=== PATIENT | male | born 1950 | race Caucasian/White ===

== ENCOUNTER 2023-04-17 15:43 | Emergency (ER) | payer OTHER, SELFPAY ==
[2023-04-17] VITALS (46 sets, daily range): BP systolic 128–156; BP diastolic 65–88; PULSE 87–108; RESP 16–32; TEMP 36.4; O2SAT 93–100
--- NOTE | ~2023-04-17 | CT_ITS ---
EXAMINATION: CT abdomen pelvis w con DATE: 04/17/2023 18:08 INDICATION: Gross hematuria, generalized abdominal pain TECHNIQUE: Computed tomography (CT) of the abdomen and pelvis was performed with 100 mL Omnipaque-350 intravenous contrast. Automated exposure control and iterative reconstruction technique were employe d. The dose-length product was 1171.23 mGy-cm. COMPARISON: None. FINDINGS: Lower thorax: Aortic mitral and coronary artery calcifications. Minimal dependent atelectasis/scar. Liver: Normal. Biliary/Gallbladder: Gallbladder is normal. No bile duct dilation. Pancreas: Mild fatty infiltration. Spleen: Normal. Adrenals:1.6 cm indeterminate density (37HU) right adrenal mass. Kidneys: No suspicious mass, obstructing stone, or hydronephrosis. GI tract: Mild distal esophageal and gastric wall edema. No small or large bowel dilation. Normal julia endix. Mesentery/Peritoneum: No ascites, mass, or free air. Retroperitoneum: No mass. Atherosclerotic abdominal aortic and/or arterial calcifications. 4.3 cm inf rarenal abdominal aortic aneurysm with intramural thrombus. Pelvis: Marked urinary bladder distention. Prostatomegaly. Barry catheter terminating in the proximal penile urethra, with adjacent subcutaneous or urethral gas and a blush of contrast and may represent ureteral hemorrhage. Soft Tissues: Soft tissues and body wall unremarkable. Bones: No acute osseous finding. IMPRESSION: Mild esophagitis/gastritis. 1.6 cm indeterminate density right adrenal mass, probably benign. Recommend nonemergent outpatient ad renal CT if there is a history of cancer. If no cancer history, consider 12 month follow-up adrenal C T. 4.3 cm infrarenal abdominal aortic aneurysm, recommend follow-up ultrasound aorta in one year. Marked urinary bladder distention. Malpositioned Barry catheter with suggestion of urethral tear and hemorrhage. Consider urology consultation. Hyperdense dependent debris in the urinary bladder may represent proteinaceous or hemorrhagic debris. Reviewed, dictated and finalized at location K. ANALYST IMPRESSION: Mild esophagitis/gastritis. 1.6 cm indeterminate density right adrenal mass, probably benign. Recommend non emergent outpatient adrenal CT if there is a history of cancer. If no cancer hi story, consider 12 month follow-up adrenal CT. 4.3 cm infrarenal abdominal aortic aneurysm, recommend follow-up ultrasound aor ta in one year. Marked urinary bladder distention. Malpositioned Barry catheter with suggestion of urethral tear and hemorrhage. Consider urology consultation. Hyperdense dependent debris in the urinary bladder may represent proteinaceous or hemorrhagic debris.
--- NOTE | ~2023-04-17 | XR_ITS ---
EXAMINATION: XR chest 1V Exam Date/Time: 04/17/2023 18:00 ONCOLOGY PHARMACIST HISTORY: rhonchi, copd Comparison: None. RESULT: Lines, tubes, and devices: None. Lungs and pleura: Lordotic positioning. Senescent changes, otherwise clear. Cardiomediastinal silhouette: Stable. Other: No acute osseous or upper abdominal finding. IMPRESSION: No acute cardiopulmonary process. Reviewed, dictated and finalized at location K. LOGY PHARMACIST
--- NOTE | 2023-04-17 16:19 | ECG_ITS ---
Measurements Intervals [place] Rate: 92 P: -13 [place]: 203 QRS: -3 QRSD: 76 T: 62 QT: 333 QTc: 413 Interpretive Statements SINUS RHYTHM ATRIAL PREMATURE COMPLEXES NONSPECIFIC ST-T WAVE ABNORMALITY- HIGH LATERAL LEADS BASELINE ARTIFACT- I, II, III, AVR, AVL, AVF, V4-V6 BORDERLINE ECG NO PREVIOUS ECG AVAILABLE FOR COMPARISON Electronically Signed On 04-17-2023 19:27:15 LOT ATTENDANT by Dante Shipman D.O.
--- NOTE | 2023-04-17 16:24 | ED.MALEGU ---
HPI - Male Genitourinary General Chief complaint: Urogenital-Male <Gris Fung PA-C - Last Filed: 04/17/23 19:50> Stated complaint: blood clots in elias <Gris Fung PA-C - Last Filed: 04/17/23 19:50> Time Seen by Provider: 04/17/23 15:43 <Gris Fung PA-C - Last Filed: 04/17/23 19:50> History of Present Illness HPI Narrative: 73-year-old male [facility] with a history of multiple CVAs and residual left-sided hemiplegia, dementia is normally A&O x1 at baseline, COPD 2 L nasal cannula baseline reports for evaluation for gross hematuria in his Elias catheter since midnight yesterday. The patient is a poor historian, however does state that he pulled his catheter out yesterday because it felt like I had to pee . States nursing staff replace his Elias catheter in since then it has been draining blood. He is reporting intermittent generalized mild abdominal pain. He has bruising to his abdomen which he states is from injections of blood thinner . However, no anticoagulants seen in patient's med list. patient denies fever, nausea or vomiting, cough or congestion, rash, lightheadedness or syncope. I contacted [facility] for further information who provided the following history. Patient pulled out his catheter around 6:00 p.m. yesterday, nursing staff was able to place a new Elias catheter out at midnight and noticed dark hematuria. EMS was contacted today and the patient was transported. the patient normally wears 2 L of oxygen at baseline and is A&Ox1. He has not been seen by a urologist per [facility]. He not anticoagulated per med list. <Gris Fung PA-C - Last Filed: 04/17/23 19:50> Related Data Allergies/Adverse reactions: Allergies Allergy/AdvReac Type Severity Reaction Status Date / Time No Known Allergies Allergy Verified 04/17/23 17:55 <Gris Fung PA-C - Last Filed: 04/17/23 19:50> Review of Systems Review of Systems: CONSTITUTIONAL: Denies fever, chills, or sweats. EYES: Denies visual changes, redness, or discharge. ENT: Denies rhinorrhea, congestion, sore throat, or otalgia. CARDIOVASCULAR: Denies chest pain, palpitations, or edema. RESPIRATORY: Denies cough or dyspnea. GASTROINTESTINAL: Denies abdominal pain, nausea, vomiting, or diarrhea. GENITOURINARY: see HPI SKIN: Denies rash or itching. MUSCULOSKELETAL: Denies back pain, joint pain, or myalgia. NEUROLOGIC: Denies headache, numbness, or weakness. PSYCHIATRIC: Denies anxiety or depression. <Gris Fung PA-C - Last Filed: 04/17/23 19:50> Exam Narrative: GENERAL: Well-appearing, well-nourished, and in no acute distress. HEAD: Normocephalic, atraumatic. EYES: PERRLA and EOMI. ENT: Nares clear, no rhinorrhea or epistaxis. Mucous membranes moist. NECK: Supple. CHEST: Decreased breath sounds with rhonchi throughout. HEART: Regular rate and rhythm. No murmur heard. Normal peripheral pulses. ABDOMEN: Normoactive bowel sounds. Abdomen distended, nontender. Ecchymosis to the right flank, right lower and left lower quadrants in various stages of healing. Femoral pulses 2+ bilaterally. : No edema or tenderness to scrotum. Mild hypospadias with dried blood to urethral orifice and head of the penis. Elias catheter in place draining dark red blood. EXTREMITIES: Normal range of motion. No edema. SKIN: Warm, dry, no rash. NEURO: No focal deficits. Alert and oriented x2 <Gris Fung PA-C - Last Filed: 04/17/23 19:50> Course Course Emergency Course: GORDO: Spoke with Urology, Dr. Mcwilliams who was able to evacuate the hematoma with a flexible cystoscope. He has never recommend she interventions. He feels that the patient should be able to go home. Does not feel strongly that the patient needs CBI. Re-evaluation: Patient is resting comfortably. He is still draining dark blood in the bag. Spoke with Hospitalist, Dr. Herrera
[2023-04-17 16:47] LABS: Basophils Percent Auto 0.2 % (0.2-1.2); Hematocrit 35.4 % (42.0-52.0); Hemoglobin 11.3 g/dL (14.0-18.0); Immature Granulocyte Absolute 0.08 K/mm3 (0.00-0.031); Immature Granulocyte Percent A 0.8 % (0-0.5); Lymphocytes Absolute Auto 0.79 K/mm3 (0.9-3.2); Lymphocytes Percent Auto 7.6 % (18.3-44.2); Mean Corpuscular HGB Conc 31.9 g/dl (32-36); Mean Corpuscular Hemoglobin 28.5 pg (26-34); Mean Corpuscular Volume 89.2 fl (80-100); Mean Platelet Volume 9.8 fl (7.4-10.4); Monocytes Absolute Auto 0.4 K/mm3 (0.1-0.6); Monocytes Percent Auto 3.6 % (2.6-8.5); Neutrophils Absolute Auto 9.1 K/mm3 (1.3-6.7); Neutrophils Percent Auto 87.8 % (45.5-73.1); Platelet Count Result 189 k/mm3 (150-375); Red Blood Count 3.97 M/mm3 (4.6-6.20); Red Cell Distribution Width 15.9 % (11.5-14.5); White Blood Count 10.3 K/mm3 (4.5-10.0)
[2023-04-17 16:56] LABS: Alanine Aminotransferase 113 U/L (6-50); Albumin Level 3.5 g/dL (3.5-5.1); Alkaline Phosphatase 179 U/L (38-126); Anion Gap 5 mmol/L (8-16); Aspartate Amino Transferase 57 U/L (17-59); Bilirubin,Total 0.4 mg/dL (0.2-1.3); Blood Urea Nitrogen 23 mg/dL (9-20); Calcium 8.5 mg/dL (8.4-10.2); Carbon Dioxide 25 mmol/L (22-30); Chloride 102 mmol/L (98-107); Estimated CRCL calculation 77 ml/min; Estimated Glomerular Filt Rate > 60; Glucose 163 mg/dL (65-110); Lipase 302 U/L (23-300); Potassium 4.7 mmol/L (3.4-5.0); Prothrombin Time 13.9 Seconds (11.1-14.7); Sodium 132 mmol/L (137-145)
[2023-04-17 16:57] LABS: Partial Thromboplastin Time 23.7 SECONDS (22.3-36.8)
[2023-04-17] MEDS: IPRATROPIUM 0.5 MG/ALBUTEROL SULFATE 2.5 MG AMPUL.NEB 3 ML INHALATION (17:20)
[2023-04-17 17:29] LABS: Hematocrit 35.3 % (42.0-52.0); Hemoglobin 11.2 g/dL (14.0-18.0)
[2023-04-17 17:41] LABS: Lactic Acid Reflex 2.3 mmol/L (0.7-2.0)
[2023-04-17] MEDS: WATER FOR IRRIGATION, STERILE 500 ML BOTTLE (17:55)
[2023-04-17] MEDS: Please add drug allergy info to patient profile. 1 EACH XX (17:56)
--- NOTE | 2023-04-17 17:56 | PC.NURSE ---
after removing elias @1700 that pt arrived with pt was continuously bleeding from penis. notified provider and dr. rosario to examine pt. they gave verbal orders to place 3-way elias cath. pt tolerated this well however minimal blood came out and then stopped draining. irrigation attempted with no success. provider was made aware of the situation and they did ultrasound. elias is in place, no CBI infusing at this time, and pt taken down to CT.
[2023-04-17 18:09] LABS: NT Pro B Type Natriuretic Pept 69 pg/mL (19.9-100)
[2023-04-17 18:27] LABS: Appearance Urine Turbid (Clear); Color Urine Red (Yellow)
[2023-04-17 18:32] LABS: Add Urine Microscopic? YES
[2023-04-17 18:33] LABS: Bacteria Urine Trace /hpf; RBC Urine >100 /hpf (0-2); Squamous Epithelial Cell Urine None seen /hpf (Few); WBC Urine 0-5 /hpf (0-3)
[2023-04-17 20:25] LABS: Reflex Lactic Acid Yes or No Add Lactic
[2023-04-17 20:41] LABS: Hematocrit 35.3 % (42.0-52.0); Hemoglobin 11.2 g/dL (14.0-18.0)
[2023-04-17 20:53] LABS: Lactic Acid 1.6 mmol/L (0.7-2.0)
--- NOTE | 2023-04-17 20:55 | WPDURCON ---
Assessment and Plan Assessment and plan (1) Hemorrhage of urethra: Code(s): N36.8 - Other specified disorders of urethra Status: Acute (2) Urethral tear: Code(s): S37.33XA - Laceration of urethra, initial encounter Status: Acute (3) Urinary retention due to benign prostatic hyperplasia: Code(s): N40.1 - Benign prostatic hyperplasia with lower urinary tract symptoms; R33.8 - Other retention of urine Status: Acute Plan Patient was prepped and draped in a sterile fashion at the bedside. Viscous lidocaine jelly was administered. 16Fr cystoscopy was inserted and urethra noted to have a tear in bulbous urethra, BPH, distended bladder with tea colored urine. Zip wire left in bladder and than cystoscope removed. Over that wire, an 18Fr [place] catheter was placed into the bladder. The wire was removed. The elias catheter was than irrigated and 50ml of clot evacuated. Afterwards the bladder was draining tea colored urine freely. Elias connected to gravity drainage. Patient tolerated the procedure well. No complications 1) Would apply a STAT lock to thigh to make it difficult for patient to remove again 2) Can continue with monthly elias changes in 1 month Urology Consult Note HPI Date Seen: 04/17/23 Requesting Physician: ER Primary Care Provider: Roni Rodriguez, Consult Narrative Narrative: Gorge Michel is a 73 year old male transferred from [facility] with chronic indwelling elias who apparently pulled the elias out due mental confusion. Nursing staff attempted to reinsert but was unsuccessful. CT in ER noted elias balloon inflated in bulbous urethra, bladder distension and small amount of clot at base of bladder. Urology consulted for elias re-insertion Meds Home Medications and Allergies Allergies Allergy/AdvReac Type Severity Reaction Status Date / Time No Known Allergies Allergy Verified 04/17/23 17:55 Vital Signs Vital Signs - 24 hr 04/17/23 15:40 04/17/23 15:51 04/17/23 16:00 Temperature 36.4 C Pulse Rate 97 100 101 H Respiratory Rate 16 28 H 21 H Blood Pressure 142/73 H Pulse Oximetry 99 99 Oxygen Delivery Nasal Cannula Oxygen Flow Rate 4 04/17/23 16:01 04/17/23 16:15 04/17/23 16:16 Temperature Pulse Rate 104 H 92 94 Respiratory Rate 28 H 26 H 24 H Blood Pressure 140/71 Pulse Oximetry Oxygen Delivery Oxygen Flow Rate 04/17/23 17:20 04/17/23 17:27 04/17/23 16:17 Temperature Pulse Rate 97 96 95 Respiratory Rate 29 H 28 H 26 H Blood Pressure Pulse Oximetry Oxygen Delivery Oxygen Flow Rate 04/17/23 16:36 04/17/23 16:45 04/17/23 16:52 Temperature Pulse Rate 95 96 99 Respiratory Rate 24 H 24 H 26 H Blood Pressure 145/69 H Pulse Oximetry 97 97 97 Oxygen Delivery Oxygen Flow Rate 04/17/23 17:00 04/17/23 17:01 04/17/23 17:22 Temperature Pulse Rate 91 94 98 Respiratory Rate 26 H 24 H 23 H Blood Pressure 128/77 Pulse Oximetry 98 98 98 Oxygen Delivery Oxygen Flow Rate 04/17/23 17:30 04/17/23 17:31 04/17/23 17:47 Temperature Pulse Rate 91 97 97 Respiratory Rate 32 H 27 H 26 H Blood Pressure 129/75 Pulse Oximetry 98 97 96 Oxygen Delivery Oxygen Flow Rate 04/17/23 18:10 04/17/23 18:11 04/17/23 18:17 Temperature Pulse Rate 92 Respiratory Rate 24 H Blood Pressure 148/72 H Pulse Oximetry 95 95 94 Oxygen Delivery Oxygen Flow Rate 04/17/23 18:30 04/17/23 18:31 04/17/23 18:58 Temperature Pulse Rate 94 96 99 Respiratory Rate 27 H 23 H 16 Blood Pressure 130/69 Pulse Oximetry 95 98 93 Oxygen Delivery Oxygen Flow Rate Results Labs 04/17/23 20:37 04/17/23 16:35 Labs: Short CBC 04/17/23 04/17/23 04/17/23 Range/Units 16:35 17:19 20:37 WBC 10.3 H (4.5-10.0) K/mm3 Hgb 11.3 L 11.2 L 11.2 L (14.0-18.0) g/dL Hct 35.4 L 35.3 L 35.3 L (42.0-52.0) % Plt Count 189 (150
[2023-04-17] MEDS: LIDOCAINE HCL 2% GEL UROJET 10 ML PKG (21:21)
[2023-04-17] MEDS: SODIUM CHLORIDE 0.9% IV 1,000 ML 1000 ML (21:29)
--- NOTE | 2023-04-17 21:30 | PC.NURSE ---
1000 of NS was used for urology who asked me to over ride a bag of fluids for procedure. they were not used as IV fluids
--- NOTE | 2023-04-17 23:42 | PC.NURSE ---
called [email or web address] and gave report and discharge instructions to Torri.
== END 2023-04-18 00:50 ==
PROVIDERS: Emergency Provider Physician Assistant; PCP Internal Medicine
DX: S37.33XA Laceration of urethra, initial encounter (principal); N40.1 Benign prostatic hyperplasia with lower urinary tract symptoms; R33.8 Other retention of urine; E27.8 Other specified disorders of adrenal gland; I71.43 Infrarenal abdominal aortic aneurysm, without rupture; J44.9 Chronic obstructive pulmonary disease, unspecified; I69.954 Hemiplegia and hemiparesis following unspecified cerebrovascular disease affecting left non-dominant side; Z99.81 Dependence on supplemental oxygen; K20.90 Esophagitis, unspecified without bleeding; K29.70 Gastritis, unspecified, without bleeding; I49.1 Atrial premature depolarization; R94.31 Abnormal electrocardiogram [ECG] [EKG]; X58.XXXA Exposure to other specified factors, initial encounter
CPT/HCPCS: 36415; 51702; 51703; 51705; 52000; 71045; 74177; 80053; 81001; 83605; 83690; 83880; 85014; 85018; 85025; 85610; 85730; 86850; 86900; 86901; 93005; 94640; 99284; C2627; J7030; Q9967